=== PATIENT | male | born 1990 | race Caucasian/White ===

== ENCOUNTER 2022-04-20 12:04 | Emergency (ER) | payer SELFPAY ==
[~2022-04-20] VITALS: Ht 180.3 cm; Wt 86.2 kg
[2022-04-20 14:16] VITALS: BP 151/82
== END 2022-04-20 15:01 | disposition home or self-care (01) ==
LOC: ER 12:04
DX: S86.011A Strain of right Achilles tendon, initial encounter (principal); W01.0XXA Fall on same level from slipping, tripping and stumbling without subsequent striking against object, initial encounter; Y93.89 Activity, other specified; Y92.89 Other specified places as the place of occurrence of the external cause; Y99.8 Other external cause status
CPT/HCPCS: 73630